=== PATIENT | male | born 1990 | race African-American/Black ===

== ENCOUNTER 2017-09-13 13:35 | Emergency (ER) | payer OTHER ==
[2017-09-13 13:41] VITALS: BP 136/81; PULSE 85; RESP 16; TEMP 98.9
--- NOTE | 2017-09-13 14:46 | ED ---
Eye Problem HPI - General Chief complaint: Eye Problems Stated complaint: RT EYE ABSCESS Time Seen by Provider: 09/13/17 13:42 Source: patient Mode of arrival: ambulatory Limitations: no limitations - History of Present Illness Initial comments: 27-year-old male patient presents to the emergency department today for evaluation of swelling to the left eyelid. The patient states that he has had what he believed to be a stye on the eye for the last 9-12 months. He states that he was incarcerated and unable to follow-up. He states that in March the area seemed to start growing bigger. He states that he was seen and evaluated for this 2 weeks ago after his release from assisted and was diagnosed with a stye and instructed to apply warm compresses. He was also instructed to follow-up with ophthalmology however his insurance was not active at the time. He comes in today stating he now has a white head over the bumbp and it seems to be obstructing his vision more. Patient denies any fever or chills with this. Denies any drainage from the site. He denies any blurred or double vision. Patient denies any recent rash, shortness breath, chest pain, abdominal pain, nausea, vomiting, diarrhea, constipation, back pain, numbness, tingling, dizziness, weakness, hematuria, dysuria, urinary urgency, urinary frequency, headache, visual changes, or any other complaints. - Related Data Previous Rx's Medication Instructions Recorded Cephalexin [Keflex] 500 mg PO Q6H #40 cap 09/13/17 Allergies Allergy/AdvReac Type Severity Reaction Status Date / Time No Known Allergies Allergy Verified 09/13/17 13:41 Review of Systems ROS Statement: Those systems with pertinent positive or pertinent negative responses have been documented in the HPI. ROS Other: All systems not noted in ROS Statement are negative. Past Medical History Past Medical History: No Reported History History of Any Multi-Drug Resistant Organisms: None Reported, MRSA Date of last positivie culture/infection: 2014 MDRO Source:: axilla Past Surgical History: Orthopedic Surgery Additional Past Surgical History / Comment(s): right great toe Past Psychological History: No Psychological Hx Reported Smoking Status: Current every day smoker Past Alcohol Use History: Occasional Past Drug Use History: None Reported General Exam Limitations: no limitations General appearance: alert, in no apparent distress, other (Physical well- developed, well-nourished adult male patient in no acute distress. Vital signs upon presentation were temperature 98.9F, pulse 85, respiration 16, blood pressure 136/81, pulse ox 100% on room air.) Eye exam: Present: PERRL, EOMI, other (Patient has what appears to be a chalazion to the right upper eyelid. There is a white head, area is fluctuant. There is minimal surrounding erythema.). Absent: normal appearance, scleral icterus, conjunctival injection, periorbital swelling ENT exam: Present: normal exam, normal oropharynx, mucous membranes moist Respiratory exam: Present: normal lung sounds bilaterally. Absent: respiratory distress, wheezes, rales, rhonchi, stridor Cardiovascular Exam: Present: regular rate, normal rhythm, normal heart sounds. Absent: systolic murmur, diastolic murmur, rubs, gallop, clicks GI/Abdominal exam: Present: soft, normal bowel sounds. Absent: distended, tenderness, guarding, rebound, rigid Neurological exam: Present: alert, oriented X3, CN II-XII intact Psychiatric exam: Present: normal affect, normal mood Skin exam: Present: warm, dry, intact, normal color. Absent: rash Course Vital Signs 09/13/17 13:37 Temperature 98.9 F Pulse Rate 85 Respiratory 16 Rate Blood Pressure 136/81 O2 Sat by Pulse 100 Oximetry Procedures - Incision & Drainage Consent Obtained: verbal consent Site: eyelid (Right upper) Size (cm): 1 I&D Cleaning Method: Betadine Needle Aspiration Performed?: Yes Irrigation Performed?: No I&D Drainage Obtained: Pus, Serous Culture Obtained?: Yes Patient Tolerated Procedure: well, no complications Medical Decision Making - Medical Decision Making 27-year-old male patient presented to the emergency department today for evaluation of a growth to the right eyelid. Physical examination did reveal a chalazion type growth to the right upper eyelid. There was a white head and it was fluctuant. This was drained using a puncture with a sterile needle. I did have output of a purulent serous mixture. Wound was cultured. Patient was educated regarding applying warm compresses to the site. He was given a prescription for Keflex. He is instructed to follow-up with ophthalmology for recheck in 1-2 days. He is instructed to return here immediately for any new, worsening, or concerning symptoms. He verbalizes understanding and agrees with this plan. Disposition Clinical Impression: Chalazion of right eyelid Disposition: HOME SELF-CARE Condition: Good Instructions: Chalazion (ED) Additional Instructions: Warm compresses to the right eye 3 times daily. Take antibiotic prescription in full. Follow-up with ophthalmology for further evaluation. Return here immediately for any new, worsening, or concerning symptoms. Prescriptions: Cephalexin [Keflex] 500 mg PO Q6H #40 cap Referrals: None,Stated [Primary Care Provider] - 1-2 days Rivera Xiong MD [STAFF PHYSICIAN] - 1-2 days Time of Disposition: 14:46
== END 2017-09-13 14:57 | disposition home or self-care (01) ==
LOC: EC 13:35
DX: H00.11 Chalazion right upper eyelid (principal); F17.200 Nicotine dependence, unspecified, uncomplicated; Z86.14 Personal history of Methicillin resistant Staphylococcus aureus infection
CPT/HCPCS: 10060; 87070; 87205; 99283

== ENCOUNTER 2018-01-16 18:22 | Emergency (ER) | payer OTHER ==
--- NOTE | 2018-01-16 19:21 | ED ---
Male Urogenital HPI - General Chief complaint: Urogenital Stated complaint: TESTING Time Seen by Provider: 01/16/18 19:21 Source: patient Mode of arrival: ambulatory Limitations: no limitations - History of Present Illness Initial comments: Patient presents for STD check. Patient states he is sexually active with his girlfriend, states she has been experiencing abdominal pain, vaginal discharge, vaginal odors. Patient states he had mild burning when he urinated this morning. Has had no other symptoms. Denies penile discharge, scrotal pain, testicular pain, abdominal pain, nausea, vomiting, fevers, chills. Has had 1 STI in the past, states he had significant penile discharge at that time, occurred when he was 21 years old. States that his girlfriend had a third sexual partner approximately 3 weeks ago, states his girlfriend has been having symptoms since then. Patient states he would like to be prophylactically treated for STI is at this time. Patient has no other concerns or complaints. - Related Data Home Medications Medication Instructions Recorded Confirmed Buprenorphine HCl/Naloxone HCl 1 film SL DAILY 01/16/18 01/16/18 [Suboxone 8 mg-2 mg Sl Film] Clindamycin HCl [Cleocin] 300 mg PO Q8H 01/16/18 01/16/18 Ibuprofen [Motrin] 800 mg PO TID PRN 01/16/18 01/16/18 Allergies Allergy/AdvReac Type Severity Reaction Status Date / Time No Known Allergies Allergy Verified 01/16/18 18:30 Review of Systems ROS Statement: Those systems with pertinent positive or pertinent negative responses have been documented in the HPI. ROS Other: All systems not noted in ROS Statement are negative. Constitutional: Denies: fever, chills Eyes: Denies: vision change ENT: Denies: throat pain Respiratory: Denies: cough Cardiovascular: Denies: chest pain Gastrointestinal: Denies: abdominal pain, nausea, vomiting, diarrhea, constipation Genitourinary: Reports: dysuria. Denies: urgency, frequency, hematuria, discharge, testicular pain, testicular mass Musculoskeletal: Denies: back pain Skin: Denies: rash Neurological: Denies: headache Past Medical History Past Medical History: No Reported History History of Any Multi-Drug Resistant Organisms: None Reported, MRSA Date of last positivie culture/infection: 2014 MDRO Source:: axilla Past Surgical History: Orthopedic Surgery Additional Past Surgical History / Comment(s): right great toe Past Psychological History: No Psychological Hx Reported Smoking Status: Current every day smoker Past Alcohol Use History: Occasional Past Drug Use History: Prescription Drug Abuse General Exam - General Exam Comments Initial Comments: Sitting up in bed. No acute distress. Conversing normally. Calm, pleasant. Well appearing. Limitations: no limitations General appearance: alert, in no apparent distress Head exam: Present: atraumatic, normocephalic Eye exam: Present: normal appearance ENT exam: Present: normal oropharynx Neck exam: Present: normal inspection Respiratory exam: Present: normal lung sounds bilaterally. Absent: respiratory distress, wheezes, rales Cardiovascular Exam: Present: regular rate, normal rhythm GI/Abdominal exam: Present: soft, normal bowel sounds. Absent: distended, tenderness, guarding, rebound exam: Present: normal inspection, circumcision. Absent: testicular tenderness, urethral discharge, scrotal swelling Extremities exam: Present: normal inspection Back exam: Present: normal inspection Neurological exam: Present: alert, oriented X3 Psychiatric exam: Present: normal affect, normal mood Skin exam: Present: warm, dry, intact, normal color. Absent: rash, erythema, urticaria, vesicles, petechiae, abrasion Course Vital Signs 01/16/18 18:28 Temperature 99.0 F Pulse Rate 88 Respiratory 20 Rate Blood Pressure 121/66 O2 Sat by Pulse 98 Oximetry Medical Decision Making - Medical Decision Making No abnormalities of Genital exam appreciated. Discuss prophylactic treatment for ST eyes, patient agrees to one-time dose 8 azithromycin, Rocephin, Flagyl. Urinalysis negative for infection. Patient states his partner is also registered to be seen and treated here in the ER. Pt informed to tell any other sexual partners they need to be tested and treated. Patient follow primary care physician. Return to ER if new or worsening symptoms. - Lab Data Lab Results 01/16/18 Range/Units 19:28 Urine Color Yellow Urine Appearance Clear (Clear) Urine pH 7.5 (5.0-8.0) Ur Specific [place] 1.024 (1.001-1.035) Urine Protein Trace H (Negative) Urine Glucose (UA) Negative (Negative) Urine Ketones Negative (Negative) Urine Blood Negative (Negative) Urine Nitrite Negative (Negative) Urine Bilirubin Negative (Negative) Urine Urobilinogen 6.0 (<2.0) mg/dL Ur Leukocyte Esterase Small H (Negative) Urine RBC 1 (0-5) /hpf Urine WBC 6 H (0-5) /hpf Urine Bacteria Rare H (None) /hpf Urine Mucus Rare H (None) /hpf Disposition Clinical Impression: STD exposure Disposition: HOME SELF-CARE Condition: Good Instructions: Sexually Transmitted Diseases (ED) Additional Instructions: Follow-up with your primary care physician one to 2 days. Return to ER for new or worsening symptoms. Is patient prescribed a controlled substance at d/c from ED?: No Referrals: Nonstaff,Physician [Primary Care Provider] - 1-2 days
[2018-01-16 19:46] LABS: Appearance,Urine Clear (Clear); Bacteria,Urine Rare /hpf; Bilirubin,Urine Negative (Negative); Blood,Urine Negative (Negative); Color,Urine Yellow; Glucose,Urine (UA) Negative (Negative); Ketones,Urine Negative (Negative); Leukocyte Esterase,Urine Small (Negative); Mucus,Urine Rare /hpf; Nitrite,Urine Negative (Negative); PH, Urine 7.5 (5.0-8.0); Protein,Urine Trace (Negative); RBC,Urine 1 /hpf (0-5); Specific Gravity,Urine 1.024 (1.001-1.035); WBC,Urine 6 /hpf (0-5)
[2018-01-16] MEDS ORDERED: cefTRIAXone 250 MG VIAL IM STA (19:48)
[2018-01-16] MEDS ORDERED: metroNIDAZOLE 500 MG TAB PO STA (19:48)
[2018-01-16] MEDS ORDERED: AZITHROMYCIN 500 MG TAB PO STA (19:48)
[2018-01-16 21:01] VITALS: BP 122/70; PULSE 77; RESP 18; TEMP 98
[2018-01-17 14:58] LABS: C. trachomatis,PCR Negative (Neg,Equiv); Chlamydia trachomatis Source Urine; N. gonorrhoeae,PCR Negative (Neg,Equiv); Neisseria Source Urine
== END 2018-01-16 21:01 | disposition home or self-care (01) ==
LOC: EC 18:22
DX: Z20.2 Contact with and (suspected) exposure to infections with a predominantly sexual mode of transmission (principal); F17.200 Nicotine dependence, unspecified, uncomplicated; Z86.14 Personal history of Methicillin resistant Staphylococcus aureus infection; Z79.891 Long term (current) use of opiate analgesic
CPT/HCPCS: 81001; 87491; 87591; 87086; 99283; 96372; J0696

== ENCOUNTER 2018-06-21 08:42 | Emergency (ER) | payer OTHER ==
[2018-06-21 08:49] VITALS: BP 122/75; PULSE 105; RESP 18; TEMP 98.1
[2018-06-21] MEDS ORDERED: ACET/COD 300 MG/30 MG STARTER PACK 6 TAB BTL PO STA (08:54)
--- NOTE | 2018-06-21 08:54 | ED ---
ENT HPI - General Chief complaint: Dental/Oral Stated complaint: Tooth pain Time Seen by Provider: 06/21/18 08:51 Source: patient, RN notes reviewed Mode of arrival: ambulatory Limitations: no limitations - History of Present Illness Initial comments: 28 show male presents emergency Department chief complaint of left upper dental pain. Patient states it started bothering him overnight. He did have a shoe approximately one month ago with some her symptoms. Patient saw a dentist at that time in which they told him he could have her root canal to fix issue. He states he cannot afford it. Patient states now he just wants the tooth pulled. Patient denies fevers or chills. Patient states the pain is radiating up into his cheek. No fever no chills no neck stiffness. - Related Data Home Medications Medication Instructions Recorded Confirmed Buprenorphine HCl/Naloxone HCl 1 film SL DAILY 01/16/18 01/16/18 [Suboxone 8 mg-2 mg Sl Film] Clindamycin HCl [Cleocin] 300 mg PO Q8H 01/16/18 01/16/18 Ibuprofen [Motrin] 800 mg PO TID PRN 01/16/18 01/16/18 Previous Rx's Medication Instructions Recorded Ibuprofen [Motrin] 600 mg PO Q8HR PRN #30 tab 06/21/18 Penicillin V Potassium [Pen Vee K] 500 mg PO QID #40 tablet 06/21/18 Allergies Allergy/AdvReac Type Severity Reaction Status Date / Time No Known Allergies Allergy Verified 06/21/18 08:49 Review of Systems ROS Statement: Those systems with pertinent positive or pertinent negative responses have been documented in the HPI. ROS Other: All systems not noted in ROS Statement are negative. Past Medical History Past Medical History: No Reported History History of Any Multi-Drug Resistant Organisms: None Reported, MRSA Date of last positivie culture/infection: 2014 MDRO Source:: axilla Past Surgical History: Orthopedic Surgery Additional Past Surgical History / Comment(s): right great toe Past Psychological History: No Psychological Hx Reported Smoking Status: Current every day smoker Past Alcohol Use History: Occasional General Exam Limitations: no limitations General appearance: alert, in no apparent distress Head exam: Present: atraumatic, normocephalic, normal inspection Eye exam: Present: normal appearance, PERRL, EOMI. Absent: scleral icterus, conjunctival injection, periorbital swelling ENT exam: Present: mucous membranes moist, TM's normal bilaterally, normal external ear exam. Absent: normal oropharynx (Dental Yris dental fracture left upper) Neck exam: Present: normal inspection, full ROM. Absent: tenderness, meningismus, lymphadenopathy Respiratory exam: Present: normal lung sounds bilaterally. Absent: respiratory distress, wheezes, rales, rhonchi, stridor Cardiovascular Exam: Present: regular rate, normal rhythm, normal heart sounds. Absent: systolic murmur, diastolic murmur, rubs, gallop, clicks Skin exam: Present: warm, dry, intact, normal color. Absent: rash Course Vital Signs 06/21/18 08:45 Temperature 98.1 F Pulse Rate 105 H Respiratory 18 Rate Blood Pressure 122/75 O2 Sat by Pulse 97 Oximetry Medical Decision Making - Medical Decision Making 28-year-old male presented for dental pain. Patient has underlying dental infection from dental fracture. Patient will be started on Pen-Vee K, ibuprofen. Patient will follow-up with dentist and return for any worsening symptoms. Disposition Clinical Impression: Dental caries, Dental infection Disposition: HOME SELF-CARE Condition: Stable Instructions: Toothache (ED) Additional Instructions: Please return to the Emergency Department if symptoms worsen or any other concerns. Prescriptions: Ibuprofen [Motrin] 600 mg PO Q8HR PRN #30 tab PRN Reason: Pain Penicillin V Potassium [Pen Vee K] 500 mg PO QID #40 tablet Is patient prescribed a controlled substance at d/c from ED?: No Referrals: None,Stated [Primary Care Provider] - 1-2 days Time of Disposition: 08:54
== END 2018-06-21 09:02 | disposition home or self-care (01) ==
LOC: EC 08:42
DX: K02.9 Dental caries, unspecified (principal); K04.7 Periapical abscess without sinus; S02.5XXA Fracture of tooth (traumatic), initial encounter for closed fracture; F17.200 Nicotine dependence, unspecified, uncomplicated; Z86.14 Personal history of Methicillin resistant Staphylococcus aureus infection; Z79.899 Other long term (current) drug therapy; X58.XXXA Exposure to other specified factors, initial encounter
CPT/HCPCS: 99282